=== PATIENT | male | born 1985 | race Caucasian/White ===

== ENCOUNTER 2023-09-03 13:55 | Outpatient (RCR) | payer OTHER, SELFPAY | END 2023-09-03 23:59 | disposition home or self-care (01) | LOC: RPT 13:55 | PROVIDERS: ATTENDING PHYSICIAN Orthopaedic Surgery Orthopaedic Trauma; FAMILY PHYSICIAN Family Medicine | DX: M25.511 Pain in right shoulder (principal); M25.611 Stiffness of right shoulder, not elsewhere classified; Z73.6 Limitation of activities due to disability; R29.3 Abnormal posture | CPT/HCPCS: 97110; 97112; 97140 ==

== ENCOUNTER → 2023-09-25 08:59 | Outpatient (REF) | payer OTHER, SELFPAY | LOC: RAD 08:59 | PROVIDERS: ATTENDING PHYSICIAN Family Medicine | DX: M25.512 Pain in left shoulder (principal) | CPT/HCPCS: 73030 ==

== ENCOUNTER 2023-10-17 15:09 | Outpatient (RCR) | payer OTHER, SELFPAY | END 2023-10-17 23:59 | disposition home or self-care (01) | LOC: RPT 15:09 | PROVIDERS: ATTENDING PHYSICIAN Orthopaedic Surgery Orthopaedic Trauma; FAMILY PHYSICIAN Family Medicine | DX: M25.511 Pain in right shoulder (principal); Z73.6 Limitation of activities due to disability; R29.3 Abnormal posture | CPT/HCPCS: 97010; 97110; 97140; 97164 ==

== ENCOUNTER 2023-11-08 15:19 | Outpatient (RCR) | payer OTHER, SELFPAY | END 2023-11-08 23:59 | disposition home or self-care (01) | LOC: RPT 15:19 | PROVIDERS: ATTENDING PHYSICIAN Orthopaedic Surgery Orthopaedic Trauma; FAMILY PHYSICIAN Family Medicine | DX: M25.511 Pain in right shoulder (principal); M25.611 Stiffness of right shoulder, not elsewhere classified; R29.3 Abnormal posture; Z73.6 Limitation of activities due to disability | CPT/HCPCS: 97110; 97140 ==

== ENCOUNTER 2023-11-26 16:05 | Outpatient (RCR) | payer OTHER, SELFPAY | END 2023-11-26 23:59 | disposition home or self-care (01) | LOC: RPT 16:05 | PROVIDERS: ATTENDING PHYSICIAN Orthopaedic Surgery Orthopaedic Trauma; FAMILY PHYSICIAN Family Medicine | DX: M25.511 Pain in right shoulder (principal); M25.611 Stiffness of right shoulder, not elsewhere classified; R29.3 Abnormal posture; Z73.6 Limitation of activities due to disability ==

== ENCOUNTER → 2024-05-19 15:10 | Outpatient (REF) | payer OTHER, SELFPAY | LOC: PAVMRI 15:10 | PROVIDERS: ATTENDING PHYSICIAN Orthopaedic Surgery Hand Surgery; FAMILY PHYSICIAN Nurse Practitioner Family | DX: M25.812 Other specified joint disorders, left shoulder (principal) | CPT/HCPCS: 73218 ==

== ENCOUNTER 2024-07-02 13:05 | Emergency (ER) | payer OTHER, SELFPAY ==
[2024-07-02] VITALS (7 sets, daily range): BP systolic 104–121; BP diastolic 64–86; BMI 24.4
--- NOTE | 2024-07-02 15:05 | ED.GENMED ---
History of Present Illness
<MELONIE Lovelace Jr. Last Filed: 07/04/24 08:02>
General
Chief Complaint: Numbness
Source: patient
Exam Limitations: none
Time Seen by Provider: 07/02/24 14:15
Nursing documentation reviewed up to this point in time: agreed with
History of Present Illness
History of Present Illness:
38-year-old male presenting to the emergency department today with concerns of multiple symptoms. He claims that he has noticed some tingling to his left hand mainly to the pinky finger and ring finger over the past 3 days and also has noted some
intermittent tingling to the left lip that has been intermittent over the past few months. Sometimes occasionally notice a slight catch his breath but denies this being consistent or specifically exertional. Denies any chest pain nausea vomiting
fevers or recent illness.
Past History
<Mason Dueñas Jr., PA-C - Last Filed: 07/04/24 08:02>
Past History
ED Past Medical History: None
ED Past Surgical History: Negative Cardiac
Social History
Tobacco: Non-smoker
Alcohol: None
Drug: None
Personal: Single
Living: with family
Employment: Employed
Family History
Family History: Hypertension
Review of Systems
<Mason Dueñas Jr., PA-C - Last Filed: 07/04/24 08:02>
Review of Systems
Allergies reviewed?: Yes
All Other Systems: ROS reviewed and negative except as documented in HPI and ROS
Phy Exam
<MELONIE Lovelace Jr. Last Filed: 07/04/24 08:02>
Physical Exam
Physical Exam:
GENERAL: Alert , in no apparent distress
EYE: pupils equal and reactive
NECK: Supple, no significant adenopathy.
ENT: o/p clr, mmm.
CARDIAC: Regular rate and rhythm .
LUNGS: Clear breath sounds bilaterally, no acute respiratory distress, no wheezes/rales/rhonchi
ABDOMEN: Soft, without focal tenderness, no r/g, no cvat
NEUROLOGICAL: Alert and oriented, patient has subjective sensation change to the left hand only includes the pinky finger the ulnar aspect of the hand and half of the ring finger. 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
on the left side and symmetrical with the right side. Normal lower extremity neurologic examination. Normal HEENT exam
SKIN: Warm and dry, skin intact.
MUSCULOSKELETAL: No edema, well perfused.
PSYCH: Normal and appropriate interaction.
Course
<Mason Dueñas Jr., MELONIE - Last Filed: 07/04/24 08:02>
Orders/Labs/Results
Orders:
Orders
07/02/24 14:26
EKG [Electrocardiogram (*1)] Urgent
Reason for Study: Fatigue / Weakness
EKG- Treatment ONCE
07/02/24 15:01
CBC/With Diff [Complete Blood Count/With Diff] Urgent
07/02/24 16:30
Comprehensive Metabolic Panel Urgent
Folate Urgent
Lipase Urgent
Lyme Progressive Urgent
Comment: ADD ON
TSH Reflex To Free T4 Urgent
Vitamin B12 Urgent
07/02/24 17:42
Add On- LAB Urgent
Tests Added?: Lyme progressive
Abnormal Lab Results
07/02/24 07/02/24
15:01 16:30
Abs Immat Gran (auto) 0.1 H 10^3/uL
(0-0.05)
Absolute Neuts (auto) 6.9 H 10^3/uL
(1.4-6.5)
Absolute Lymphs (auto) 1.1 L 10^3/uL
(1.2-3.4)
Immature Gran % 1.0 H %
(0-0.5)
Neutrophils % 79.9 H %
(42.2-75.2)
Lymphocytes % 13.3 L %
(20.5-51.1)
Folate > 20.0 H ng/ml
(2.76-20)
07/02/24 15:01
07/02/24 16:30
Vital Signs
Initial and Last Documented VS:
Initial Vital Signs
Temp Pulse Resp BP Pulse Ox
98.4 F 67 18 111/82 99
07/02/24 13:09 07/02/24 13:09 07/02/24 13:09 07/02/24 13:09 07/02/24 13:09
Last Documented Vital Signs
Temp Pulse Resp BP Pulse Ox
98.4 F 60 18 121/76 98
07/02/24 18:06 07/02/24 18:06 07/02/24 18:06 07/02/24 18:06 07/02/24 18:06
<Tiara Franco, ELDER ASSISTANT - Last Filed: 07/02/24 20:58>
Orders/Labs/Results
Orders:
Orders
07/02/24 14:26
EKG [Electrocardiogram (*1)] Urgent
Reason for Study: Fatigue / Weakness
EKG- Treatment ONCE
07/02/24 15:01
CBC/With Diff [Complete Blood Count/With Diff] Urgent
07/02/24 16:30
Comprehensive Metabolic Panel Urgent
Folate Urgent
Lipase Urgent
Lyme Progressive Urgent
Comment: ADD ON
TSH Reflex To Free T4 Urgent
Vitamin B12 Urgent
07/02/24 17:42
Add On- LAB Urgent
Tests Added?: Lyme progressive
Abnormal Lab Results
07/02/24 07/02/24
15:01 16:30
Abs Immat Gran (auto) 0.1 H 10^3/uL
(0-0.05)
Absolute Neuts (auto) 6.9 H 10^3/uL
(1.4-6.5)
Absolute Lymphs (auto) 1.1 L 10^3/uL
(1.2-3.4)
Immature Gran % 1.0 H %
(0-0.5)
Neutrophils % 79.9 H %
(42.2-75.2)
Lymphocytes % 13.3 L %
(20.5-51.1)
Folate > 20.0 H ng/ml
(2.76-20)
07/02/24 15:01
07/02/24 16:30
Vital Signs
Initial and Last Documented VS:
Initial Vital Signs
Temp Pulse Resp BP Pulse Ox
98.4 F 67 18 111/82 99
07/02/24 13:09 07/02/24 13:09 07/02/24 13:09 07/02/24 13:09 07/02/24 13:09
Last Documented Vital Signs
Temp Pulse Resp BP Pulse Ox
98.4 F 60 18 121/76 98
07/02/24 18:06 07/02/24 18:06 07/02/24 18:06 07/02/24 18:06 07/02/24 18:06
<Mason Dueñas Jr., PA-C - Last Filed: 07/04/24 08:02>
MDM/Problems Addressed
MDM/Problems Addressed:
38-year-old male presenting to the emergency department today with concerns of paresthesia to the left hand and left face. Also occasionally claims that he while speaking has to catch his breath. On arrival vital signs are normal patient
well-appearing no acute distress. Neurologic symptoms to the ulnar distribution of the left hand does not seem to be consistent with any central process. No ongoing symptoms to the left face. Normal HEENT examination. Does not appear to be
consistent with central process.
<Tiara Franco NP - Last Filed: 07/02/24 20:58>
MDM/Problems Addressed
MDM/Problems Addressed:
38-year-old male presenting to the emergency department today with concerns of paresthesia to the left hand and left face. Also occasionally claims that he while speaking has to catch his breath. On arrival vital signs are normal patient
well-appearing no acute distress. Neurologic symptoms to the ulnar distribution of the left hand does not seem to be consistent with any central process. No ongoing symptoms to the left face. Normal HEENT examination. Does not appear to be
consistent with central process.
530 p.m.
EKG NSR
CBC with no clinically significant abnormality
CMP normal
Lipase normal
TSH normal
Folate and B12 pending, will contact pt if abnormal.
Will add Lyme titer
<Tiara Franco ELDER ASSISTANT - Last Filed: 07/02/24 20:58>
*Critical Care Note
Total Time (30-74mins, 75-104mins- exclusive of procedures): Not Applicable
ED Attending Note
<Mason Dueñas Jr., PA-C - Last Filed: 07/04/24 08:02>
-
Portions of this chart may have been created with voice recognition software.� Occasional wrong word or��sound alike� substitutions may have occurred due to the inherent limitations of voice recognition software.
Discharge Plan
Departure
Patient Disposition: Home (Routine Discharge)
Date of Disposition: 07/02/24
Time of Disposition: 17:35
Patient with high blood pressure during this ER visit?: No
Condition: Good
Covid-19: Not Applicable
Discharge Problem:
Paresthesia
Instructions: Paresthesia (DC)
Referrals:
Ilene Abdullahi CRNP [Family Provider] -
Deuce Patel MD [Active] - Call in 1-3 days for appt
Activity Restrictions/Additional Instructions:
You came to the emergency department today with concerns of paresthesia. Please follow closely with neurology for any ongoing symptoms. Return to the emergency department for any worsening, new or concerning symptoms.
Call me [phone] between 10a - 4 p on 07/07 if you have not heard the results of your Lyme test by then
Interventions
Interventions:
*Risk Screen - Suicide Last Done: 07/02/24 13:11
*General Assessment Last Done: 07/02/24 13:11
*Neglect/Abuse Screening Last Done: 07/02/24 13:11
ED- Fall Risk Assessment Last Done: 07/02/24 15:24
*ED COVID-19 Vaccine History Last Done: 07/02/24 18:06
*Nursing Disposition Last Done: 07/02/24 18:06
ED- Neurological Assessment Last Done: 07/02/24 15:24
Discharge Date and Time
Discharge Date/Time: 07/02/24 18:09
Print Language: [place]
[2024-07-02 15:23] LABS: % Basophils 0.6 % (0-2); % Eosinophils 0.8 % (0-6); % Lymphocytes 13.3 % (20.5-51.1); % Monocytes 4.4 % (1.7-9.3); % Neutrophils 79.9 % (42.2-75.2); Absolute Basophils 0.1 10^3/uL (0-0.2); Absolute Eosinophils 0.1 10^3/uL (0-0.7); Absolute Immature Granulocytes 0.1 10^3/uL (0-0.05); Absolute Lymphocytes 1.1 10^3/uL (1.2-3.4); Absolute Monocytes 0.4 10^3/uL (0.1-0.6); Absolute Neutrophils 6.9 10^3/uL (1.4-6.5); Hematocrit 43.4 % (39.0-52.0); Hemoglobin 15.6 g/dL (13.0-18.0); Mean Corp Hgb Conc. 35.9 g/dL (33.0-37.0); Mean Corpuscular Hgb 30.8 pg (27.0-31.0); Mean Corpuscular Volume 85.6 fL (80.0-94.0); Mean Platelet Volume 10.4 fL (7.4-10.4); Nucleated Red Blood Cells % 0 % (-); Platelet Count 200 10^3/uL (130-400); Red Blood Cell Count 5.07 10^6/uL (4.70-6.10); Red Cell Dist. Width 13.3 % (11.5-14.5); White Blood Cell Count 8.6 10^3/uL (4.8-10.8)
[2024-07-02 17:02] LABS: ALT (SGPT) 20 U/L (0-50); AST (SGOT) 24 U/L (17-59); Albumin 4.6 g/dl (3.5-5.0); Alkaline Phosphatase 66 U/L (38-126); Blood Urea Nitrogen 14 mg/dl (9-20); Carbon Dioxide 24 mmol/L (22-30); Chloride 105 mmol/L (98-107); Estimated Creatinine Clearance > 125 ml/min; Glucose 96 mg/dl (70-99); Lipase 67 U/L (23-300); Potassium 4.2 mmol/L (3.5-5.1); Sodium 141 mmol/L (135-145); Total Bilirubin 0.6 mg/dl (0.2-1.3); Total Protein 7.1 g/dl (6.3-8.2); eGFR > 60.00
[2024-07-02 17:26] LABS: TSH Reflex To Free T4 1.66 uIU/ml (0.47-4.68)
[2024-07-02 18:01] LABS: Folate > 20.0 ng/ml (2.76-20); Vitamin B12 405 pg/ml (239-931)
[2024-07-03 11:43] LABS: Lyme Antibody Screen, EIA Negative (Negative)
== END 2024-07-02 18:09 | disposition home or self-care (01) ==
LOC: EMR 13:05
PROVIDERS: Physician Assistant; EMERGENCY PHYSICIAN Emergency Medicine; FAMILY PHYSICIAN Nurse Practitioner Family
DX: R20.2 Paresthesia of skin (principal)
CPT/HCPCS: 99284; 80053; 82607; 82746; 83690; 84443; 85025; 86618; 93005

== ENCOUNTER → 2024-07-16 09:25 | Outpatient (REF) | payer OTHER, SELFPAY | LOC: PAVMRI 09:25 | PROVIDERS: ATTENDING PHYSICIAN Nurse Practitioner Family | DX: G62.9 Polyneuropathy, unspecified (principal) | CPT/HCPCS: 72156; A9575 ==

== ENCOUNTER 2024-08-19 08:59 | Outpatient (RCR) | payer OTHER, SELFPAY | END 2024-08-19 23:59 | disposition home or self-care (01) | LOC: RPT 08:59 | PROVIDERS: ATTENDING PHYSICIAN Nurse Practitioner Family | DX: G62.9 Polyneuropathy, unspecified (principal); Z73.6 Limitation of activities due to disability | CPT/HCPCS: 97010; 97110; 97112; 97140; 97162 ==

== ENCOUNTER 2024-08-27 09:02 | Outpatient (RCR) | payer OTHER, SELFPAY | END 2024-08-27 23:59 | disposition home or self-care (01) | LOC: RPT 09:02 | PROVIDERS: ATTENDING PHYSICIAN Nurse Practitioner Family | DX: G62.9 Polyneuropathy, unspecified (principal); Z73.6 Limitation of activities due to disability | CPT/HCPCS: 97010; 97110; 97112 ==

== ENCOUNTER 2024-10-08 11:21 | Outpatient (RCR) | payer OTHER, SELFPAY | END 2024-10-08 23:59 | disposition home or self-care (01) | LOC: RPT 11:21 | PROVIDERS: ATTENDING PHYSICIAN Nurse Practitioner Family | DX: G62.9 Polyneuropathy, unspecified (principal); Z73.6 Limitation of activities due to disability; M40.202 Unspecified kyphosis, cervical region; M62.81 Muscle weakness (generalized) | CPT/HCPCS: 97110; 97164 ==

== ENCOUNTER 2024-11-10 15:06 | Outpatient (RCR) | payer OTHER, SELFPAY | END 2024-11-10 23:59 | disposition home or self-care (01) | LOC: RPT 15:06 | PROVIDERS: ATTENDING PHYSICIAN Nurse Practitioner Family | DX: G62.9 Polyneuropathy, unspecified (principal); Z73.6 Limitation of activities due to disability; M40.202 Unspecified kyphosis, cervical region; M62.81 Muscle weakness (generalized) | CPT/HCPCS: 97110; 97112; 97140 ==

== ENCOUNTER 2025-03-21 19:58 | Emergency (ER) | payer OTHER, SELFPAY ==
[2025-03-21 19:58] VITALS: BP 133/91
--- NOTE | 2025-03-21 20:19 | ED.GENMED ---
History of Present Illness
General
Chief Complaint: Foreign Body Removal
Source: patient
Exam Limitations: none
Time Seen by Provider: 03/21/25 20:02
Nursing documentation reviewed up to this point in time: agreed with
History of Present Illness
History of Present Illness:
39-year-old male presenting to the emergency department today with concerns of a fishing hook in his right index finger that occurred when [place]. Denies any additional injuries otherwise. Tetanus shot was
4 years ago.
Past History
Past History
ED Past Medical History: None
ED Past Surgical History: Negative Cardiac
Social History
Tobacco: Non-smoker
Alcohol: None
Drug: None
Personal: Single
Living: with family
Employment: Employed
Family History
Family History: Hypertension
Review of Systems
Review of Systems
Allergies reviewed?: Yes
All Other Systems: ROS reviewed and negative except as documented in HPI and ROS
Phy Exam
Physical Exam
Physical Exam:
GENERAL: Alert , in no apparent distress
EYE: pupils equal and reactive
NECK: Supple, no significant adenopathy.
ENT: o/p clr, mmm.
CARDIAC: Regular rate and rhythm .
LUNGS: Clear breath sounds bilaterally, no acute respiratory distress, no wheezes/rales/rhonchi
ABDOMEN: Soft, without focal tenderness, no r/g, no cvat
NEUROLOGICAL: Alert and oriented, no focal neuro deficits
SKIN: Fishing hook in the right index finger on the dorsal aspect overlying the proximal phalanx warm and dry, skin intact.
MUSCULOSKELETAL: No edema, well perfused.
PSYCH: Normal and appropriate interaction.
Course
Orders/Labs/Results
Orders:
Orders
03/21/25 20:16
Cefdinir [Omnicef] 300 mg PO NOW STA
Finger(s)/Thumb 2 View Rt [CR Finger(s)/thumb Min 2 Vw Rt] Urgent
Comment:
Reason For Exam: index finger
Vital Signs
Initial and Last Documented VS:
Initial Vital Signs
Temp Pulse Resp BP Pulse Ox
98.3 F 66 16 133/91 99
03/21/25 19:58 03/21/25 19:58 03/21/25 19:58 03/21/25 19:58 03/21/25 19:58
Last Documented Vital Signs
Temp Pulse Resp BP Pulse Ox
98.3 F 66 16 133/91 99
03/21/25 19:58 03/21/25 19:58 03/21/25 19:58 03/21/25 19:58 03/21/25 20:21
Procedures
Foreign Body Removal-Skin
Wound explored and foreign body removed?: Yes
Anesthesia: local and 2% lidocaine
Foreign body removed using: irrigation and forceps
Foreign body removed: completely
MDM/Problems Addressed
MDM/Problems Addressed:
39-year-old male presenting to the emergency department with concerns of a fishing index finger that occurred prior to arrival while fishing. This was removed by cutting the hook and pushing through the other side of the skin. Neurovascular
intact. X-ray without signs of bony injury. Patient was given prophylactic antibiotic. Tetanus shot up-to-date otherwise stable for discharge. Return precautions given.
*Pulse Oximetry
SaO2: 99
Oxygen Mode of Delivery: Room air
Patient hypoxic: no (99)
*Critical Care Note
Total Time (30-74mins, 75-104mins- exclusive of procedures): Not Applicable
ED Attending Note
-
Portions of this chart may have been created with voice recognition software.� Occasional wrong word or��sound alike� substitutions may have occurred due to the inherent limitations of voice recognition software.
Discharge Plan
Departure
Patient Disposition: Home (Routine Discharge)
Date of Disposition: 03/21/25
Time of Disposition: 20:32
Patient with high blood pressure during this ER visit?: No
Condition: Good
Covid-19: Not Applicable
Discharge Problem:
Fish hook injury of finger
Instructions: Foreign Body in Skin (DC)
Prescriptions:
New
cefdinir 300 mg capsule
300 mg PO BID 3 Days Qty: 6 0RF
Referrals:
Ilene Abdullahi CRNP [Family Provider, Family Practice]
Activity Restrictions/Additional Instructions:
You came to the emergency department today with concerns of a fishhook injury. This was removed and you were started on antibiotics to reduce risk of infection. Please give the area clean covered and follow-up closely with the primary care doctor.
Please take the prescribed antibiotics. Return for any worsening, new or concerning symptoms.
Interventions
Interventions:
*Risk Screen - Suicide Last Done: 03/21/25 20:17
*General Assessment Last Done: 03/21/25 20:29
*Neglect/Abuse Screening Last Done: 03/21/25 20:17
*ED- Fall Risk Assessment Last Done: 03/21/25 20:29
*ED COVID-19 Vaccine History Last Done: 03/21/25 20:29
Discharge Date and Time
Print Language: SPANISH
[2025-03-21] MEDS: OMNICEF 300 MG PO (20:27)
== END 2025-03-21 20:35 | disposition home or self-care (01) ==
LOC: EMR 19:58
PROVIDERS: EMERGENCY PHYSICIAN Emergency Medicine; FAMILY PHYSICIAN Nurse Practitioner Family
DX: S60.450A Superficial foreign body of right index finger, initial encounter (principal); W45.8XXA Other foreign body or object entering through skin, initial encounter; Y93.19 Activity, other involving water and watercraft; Y92.838 Other recreation area as the place of occurrence of the external cause
CPT/HCPCS: 99283; 10120; 73140